=== PATIENT | male | born 1950 | race Two or more races ===

== ENCOUNTER → 2022-11-12 | Emergency (ER) | payer OTHER ==
[~2022-11-12] VITALS: Ht 152.4 cm; Wt 75.3 kg
[~2022-11-12] MED LIST: DICLOFENAC SODI75 MG PO; MEDROLPACK PO; MICARDIS HCT 81 EACH PO; NORFLEX100MG PO
== END | disposition home or self-care (01) ==
LOC: ER 20:31
DX: M54.50 Low back pain, unspecified (principal)